=== PATIENT | male | born 1985 | race Hispanic/Latino ===

== ENCOUNTER 2023-06-13 23:07 | Emergency (ER) | payer SELFPAY ==
[2023-06-14] MEDS ORDERED: Ondansetron ODT 4 MG TAB ONE (00:05)
== END 2023-06-14 00:30 | disposition home or self-care (01) ==
LOC: CSHERS 23:07
DX: R11.2 Nausea with vomiting, unspecified (principal)
CPT/HCPCS: 93005; 93010; Q0162